=== PATIENT | male | born 1965 | race Two or more races ===

== ENCOUNTER 2019-06-19 06:17 | Emergency (ER) | payer OTHER ==
[2019-06-19 06:34] VITALS: TEMP 97.6; BMI 31.3
[2019-06-19] MEDS ORDERED: morphine CARPU-JECT 4 MG/1 ML DISP.SYRIN IVPUSH ONE (06:37)
[2019-06-19] MEDS ORDERED: morphine SULFATE 4 MG/ML VIAL ONE (06:42)
--- NOTE | 2019-06-19 07:10 | PDOC ---
History of Present Illness - General Chief Complaint: Pain Stated Complaint: RIGHT LOWER QUADRANT PAIN History Source: Patient Exam Limitations: No Limitations Past History - Past Medical History Allergies/Adverse Reactions: Allergies Allergy/AdvReac Type Severity Reaction Status Date / Time No Known Allergies Allergy Verified 06/19/19 06:26 COPD: No - Psycho Social/Smoking Cessation Hx Smoking History: Never smoked *Physical Exam - Vital Signs Last Vital Signs Temp Pulse Resp BP Pulse Ox 97.6 F 70 20 177/110 H 98 06/19/19 06:24 06/19/19 06:24 06/19/19 06:24 06/19/19 06:24 06/19/19 06:24 ED Treatment Course - LABORATORY CBC & Chemistry Diagram: 06/19/19 06:25 06/19/19 06:25 Discharge - Discharge Information Problems reviewed: Yes Clinical Impression/Diagnosis: Nephrolithiasis Condition: Good Disposition: HOME - Admission No - Follow up/Referral Referrals: Delroy Enrique MD., [Staff Physician] - - Patient Discharge Instructions Patient Printed Discharge Instructions: DI for Kidney Stones Additional Instructions: You were diagnosed with a kidney stone today. Drink plenty of fluids. Your stone is small enough that it should pass on its own, but you may have recurrent pain. For your pain, you may take Motrin 600mg every 6 hours as needed. You may also take Tylenol if Motrin is not adequately controlling your pain. Do not take more than 4 g of Tylenol per day as this can cause liver damage. Follow up with the urologist Dr. Enrique within 1 week. A referral has been included in this packet. Your blood pressure was elevated in the emergency department. Make sure your take your blood pressure medications as prescribed. Follow up with your primary doctor within 1 week for a blood pressure check and for further evaluation. Return to the emergency department if you have any new, worsening or concerning symptoms. Hoy te diagnosticaron un clculo renal. Beber mucho lquido. Aaron clculo es lo suficientemente pequeo flaquita para pasar por s solo, tylor es posible que tenga dolor recurrente. Para aaron dolor, puede danny Motrin 600mg cada 6 horas segn sea necesario. Tambin puede danny Tylenol si Motrin no controla adecuadamente aaron dolor. No tome ms de 4 g de Tylenol por da ya que esto puede causar [place] heptico. Jake un seguimiento con el urlogo Dr. Enrique dentro de 1 semana. Se starks incluido timi referencia en [place]. Aaron presin arterial fue elevada en el departamento de emergencias. Asegrese de danny bebe medicamentos para la presin arterial segn lo recetado. Jake un seguimiento con aaron mdico de cabecera dentro de 1 semana para un control de la presin arterial y para timi evaluacin adicional. Regrese al departamento de emergencias si tiene algn sntoma nuevo, que empeora o relacionado. - Post Discharge Activity Work/Back to School Note: Back to Work
[2019-06-19 07:31] LABS: HEMATOCRIT 46.4 % (35.4-49); HEMOGLOBIN 16.1 GM/dL (11.7-16.9); MCH 31.9 pg (25.7-33.7); MCHC 34.6 g/dl (32.0-35.9); MEAN CELL VOLUME 92.2 fl (80-96); MEAN PLT VOLUME 9.1 fl (7.5-11.1); PLATELET COUNT 168 K/MM3 (134-434); RBC 5.03 M/mm3 (4.00-5.60); RDW 13.6 % (11.9-15.9); WHITE BLOOD COUNT 8.4 K/mm3 (4.0-10.0)
[2019-06-19 08:04] LABS: EPI CELLS 1.6 /HPF (0-5/HPF); HYALINE CASTS 17 /lpf (0-8); URINE APPEARANCE CLEAR; URINE BILIRUBIN 1+ (NEGATIVE); URINE COLOR DK YELLOW; URINE GLUCOSE (UA) 1+ (NEGATIVE); URINE KETONE TRACE (NEGATIVE); URINE LEUK ESTERASE NEGATIVE (NEGATIVE); URINE NITRITE NEGATIVE (NEGATIVE); URINE PROTEIN 2+ (NEGATIVE); URINE WBC 1 /hpf (0-5)
[2019-06-19 08:43] LABS: ALBUMIN 4.1 g/dl (3.4-5.0); ALK PHOS 62 U/L (45-117); ANION GAP 7 MMOL/L (8-16); BILIRUBIN,TOTAL 0.7 mg/dL (0.2-1); BLOOD UREA NITROGEN 15.8 mg/dL (7-18); CALCIUM 9.1 mg/dL (8.5-10.1); CHLORIDE 105 mmol/L (98-107); CO2 26 mmol/L (21-32); CREATININE 1.2 mg/dL (0.55-1.3); GLUCOSE,RANDOM 201 mg/dL (74-106); POTASSIUM 3.9 mmol/L (3.5-5.1); SGOT/AST 26 U/L (15-37); SGPT/ALT 80 U/L (13-61); SODIUM 139 mmol/L (136-145); TOT PROT 7.9 g/dl (6.4-8.2)
[2019-06-19 09:07] LABS: LIPASE 147 U/L (73-393)
--- NOTE | 2019-06-19 09:30 | PDOC ---
Attending Attestation - Resident Resident Name: Joel Randall - ED Attending Attestation I have performed the following: I have examined & evaluated the patient, The case was reviewed & discussed with the resident, I agree w/resident's findings & plan, Exceptions are as noted - HPI HPI: 06/19/19 07:04 Agree with resident HPI - Physicial Exam PE: 06/19/19 09:58 Agree with resident exam - Medical Decision Making 06/19/19 09:59 54-year-old male with a history of hypertension presents to the emergency department with sudden onset right lower quadrant pain radiating to the groin. Vitals remarkable for elevated blood pressure. Patient reports he has not taken his blood pressure medications in a few weeks. Exam with mild right-sided CVA tenderness. /Testicular exam within normal limits. Work-up revealing of a 2 to 3 mm right nonobstructing stone almost at the right UVJ. Patient has no white count, no systemic signs of infection. UA is negative for infection. Creatinine was within normal limits. His pain has resolved with Toradol. There is no emergent indication to admit patient at this time. Will refer to urology as an outpatient. Plan explained to patient. Patient is clinically stable for discharge home. I discussed the physical exam findings, ancillary test results and final diagnoses with the patient. I answered all of the patient's questions. The patient was satisfied with the care received and felt comfortable with the discharge plan and treatment plan. The patient will call their primary care physician within 24 hours to arrange follow-up and will return to the Emergency Department with any new, persistent or worsening symptoms. Discharge - Discharge Information Clinical Impression/Diagnosis: Nephrolithiasis, Abdominal pain, Right groin pain Condition: Improved Disposition: HOME - Admission No - Follow up/Referral Referrals: Delroy Enrique MD., [Staff Physician] - - Patient Discharge Instructions Patient Printed Discharge Instructions: DI for Kidney Stones Additional Instructions: You were diagnosed with a kidney stone today. Drink plenty of fluids. Your stone is small enough that it should pass on its own, but you may have recurrent pain. For your pain, you may take Motrin 600mg every 6 hours as needed. You may also take Tylenol if Motrin is not adequately controlling your pain. Do not take more than 4 g of Tylenol per day as this can cause liver damage. Follow up with the urologist Dr. Enrique within 1 week. A referral has been included in this packet. Your blood pressure was elevated in the emergency department. Make sure your take your blood pressure medications as prescribed. Follow up with your primary doctor within 1 week for a blood pressure check and for further evaluation. Return to the emergency department if you have any new, worsening or concerning symptoms. Hoy te diagnosticaron un clculo renal. Beber mucho lquido. [place] clculo es lo suficientemente pequeo flaquita para pasar por s solo, tylor es posible que tenga dolor recurrente. Para machado dolor, puede danny Motrin 600mg cada 6 horas segn sea necesario. Tambin puede danny Tylenol si Motrin no controla adecuadamente machado dolor. No tome ms de 4 g de Tylenol por da ya que esto puede causar [place] heptico. Jake un seguimiento con el urlogo Dr. Enrique dentro de 1 semana. Se starks incluido timi referencia en [place]. [place] presin arterial fue elevada en el departamento de emergencias. Asegrese de danny bebe medicamentos para la presin arterial segn lo recetado. Jake un seguimiento con machado mdico de cabecera dentro de 1 semana para un control de la presin arterial y para timi evaluacin adicional. Regrese al departamento de emergencias si tiene algn sntoma nuevo, que empeora o relacionado. - Post Discharge Activity Work/Back to School Note: Back to Work
[2019-06-19 09:32] LABS: URINE RBC 3 /hpf (0-4)
[2019-06-19 09:33] LABS: URINE CRYSTALS CALCIUM OXALATE=1+ /hpf
[2019-06-19] MEDS ORDERED: KETOROLAC TROMETHAMINE 15 MG/ML VIAL IVPUSH ONE (09:48)
[2019-06-19] MEDS ORDERED: KETOROLAC TROMETHAMINE 30 MG/1 ML VIAL ONE (09:49)
[2019-06-19 09:55] VITALS: BP 140/104; PULSE 73
--- NOTE | 2019-06-19 16:55 | EKG ---
Test Reason : Blood Pressure : / mmHG Vent. Rate : 060 BPM Atrial Rate : 060 BPM P-R Int : 128 ms QRS Dur : 082 ms QT Int : 408 ms P-R-T Axes : -06 015 022 degrees QTc Int : 408 ms NORMAL SINUS RHYTHM MINIMAL VOLTAGE CRITERIA FOR LVH, MAY BE NORMAL VARIANT NONSPECIFIC T WAVE ABNORMALITY ABNORMAL ECG NO PREVIOUS ECGS AVAILABLE Confirmed by JAKE GOOD MD ([id number]) on 06/19/2019 4:54:55 PM Referred By: Confirmed By:JAKE GOOD MD
== END 2019-06-19 10:15 | disposition home or self-care (01) ==
LOC: JER 06:17
PROC: 3E033NZ Introduction of Analgesics, Hypnotics, Sedatives into Peripheral Vein, Percutaneous Approach (ICD-10-PCS; principal; 2019-06-19)
PROC: 3E0333Z Introduction of Anti-inflammatory into Peripheral Vein, Percutaneous Approach (ICD-10-PCS; 2019-06-19)
DX: N20.0 Calculus of kidney (principal); I10 Essential (primary) hypertension; Z91.14 Patient's other noncompliance with medication regimen
CPT/HCPCS: 36415; 74176-TC; 76705-TC; 80053; 81003; 83690; 84484; 85027; 93005; 93010; 99283-25